=== PATIENT | female | born 1995 | race Two or more races ===

== ENCOUNTER 2016-12-06 23:16 | Emergency (ER) | payer SELFPAY ==
[2016-12-06 23:35] VITALS: BP 111/72
[2016-12-06] MEDS ORDERED: Cefdinir 250mg/5 ml* 100 ml ORAL.SUSP PO ONE (23:50)
[2016-12-06] MEDS ORDERED: Neomyc/Polym/HC 1% OTIC SUSP* **OTIC BOTH EARS ONE (23:52)
[2016-12-06] MEDS ORDERED: HYDROcodone/ACETAMIN 5-325 MG* 1 TAB PO ONE (23:52)
--- NOTE | 2016-12-06 23:57 | ED ---
Throat Pain/Nasal Congestion - HPI Summary HPI Summary: 21 female present with complaints of bilateral ear pain that has been ongoing for the past 2 days. Patient states she has also been having some hearing loss in both ears. Denies drainage or FB into the ears. Has had swimmers ear in the past. Has been taking ibuprofen for pain with little relief. 1000mg at 2100. Also tried using her ear drops from her last episode of swimmers ear years ago, 1 drop both ears today. Patient denies recent swimming. Admits to q- tip use. Took her temperature after taking some ibuprofen as she felt feverish and got 99F. Denies PMHx. States the ear pain has started to radiate into her jaw b/l. No sore throat or cough. - History of Current Complaint Chief Complaint: EDEarPain Time Seen by Provider: 12/06/16 23:35 Hx Obtained From: Patient Onset/Duration: Sudden Onset, Lasting Days - 2, Still Present, Worse Since Severity: Moderate Cough: None - Allergies/Home Medications Allergies/Adverse Reactions: Allergies Allergy/AdvReac Type Severity Reaction Status Date / Time Penicillins [PCN] Allergy Unknown Verified 12/31/13 16:33 Reaction Details PMH/Surg Hx/FS Hx/Imm Hx Endocrine/Hematology History: Denies: Hx Diabetes Cardiovascular History: Denies: Hx Congestive Heart Failure, Hx Hypertension Respiratory History: Denies: Hx Asthma History: Reports: Other Problems/Disorders - RIGHT OVARIAN CYST Denies: Hx Renal Disease - Surgical History Surgery Procedure, Year, and Place: none - Immunization History Date of Tetanus Vaccine: UP TO DATE Date of Influenza Vaccine: NONE Immunizations Up to Date: Yes Infectious Disease History: No Infectious Disease History: Denies: Traveled Outside the [place] in Last 30 Days - Family History Known Family History: Positive: None - Social History Alcohol Use: Occasionally Substance Use Type: Reports: None Smoking Status (MU): Never Smoked Tobacco Review of Systems Positive: Fever, Chills Eyes: Negative Positive: Ear Ache Cardiovascular: Negative Respiratory: Negative Gastrointestinal: Negative Skin: Negative Neurological: Negative All Other Systems Reviewed And Are Negative: Yes Physical Exam Triage Information Reviewed: Yes Vital Signs On Initial Exam: Initial Vitals Temp Pulse Resp BP Pulse Ox 98.2 F 91 16 111/72 100 12/06/16 23:33 12/06/16 23:33 12/06/16 23:33 12/06/16 23:33 12/06/16 23:33 Vital Signs Reviewed: Yes Appearance: Positive: Well-Appearing, Well-Nourished, Pain Distress - mild, holding ears Skin: Positive: Warm, Skin Color Reflects Adequate Perfusion, Dry Head/Face: Positive: Normal Head/Face Inspection Eyes: Positive: Normal, EOMI, KASSI, Conjunctiva Clear ENT: Positive: Hearing grossly normal, Pharynx normal, TM bulging - no perforations noted, TM dull, TM red - b/l., Other - EAC b/l with white/yellow drainage/exudate. Erythema and edema. No FB or signs of trauma. no mastoid tenderness. Negative: Pharyngeal erythema, Nasal congestion, Nasal drainage, Tonsillar swelling, Tonsillar exudate, Trismus, Muffled/hoarse voice Dental: Positive: Cervical Lymphadenopathy Neck: Positive: Supple, Nontender Respiratory/Lung Sounds: Positive: Clear to Auscultation, Breath Sounds Present. Negative: Rales, Rhonchi, Wheezes Cardiovascular: Positive: Normal, RRR, Pulses are Symmetrical in both Upper and Lower Extremities. Negative: Murmur, Rub Musculoskeletal: Positive: Normal, Strength/ROM Intact Neurological: Positive: Normal, Sensory/Motor Intact, Alert, Oriented to Person Place, Time Psychiatric: Positive: Affect/Mood Appropriate AVPU Assessment: Alert Diagnostics - Vital Signs Vital Signs Temp Pulse Resp BP Pulse Ox 12/06/16 23:33 98.2 F 91 16 111/72 100 - Laboratory Lab Statement: Any lab studies that have been ordered have been reviewed, and results considered in the medical decision making process. EENT Course/Dx - Course Course Of Treatment: Due to PE findings and HPI patient will be treated for both OM ad OE b/l. Given first dose of both drops and oral antibiotic while in ED. Take ibuprofen or tylenol for pain starting tomorrow. Aware of worsening signs and symtpoms and if symptoms worsen or do not improve to seek medical attention immediately. Follow up with PCP. Fluids and rest. No swimming or submerging water. Educated on proper use of q-tips. - Differential Diagnoses Differential Diagnoses: Otitis Externa, Otitis Media, Perforated TM, Tonsilitis , URI/Bronchitis - Diagnoses Provider Diagnoses: Otitis media of both ears, Otitis externa of both ears Discharge - Discharge Plan Condition: Stable Disposition: HOME Prescriptions: Cefdinir [Cefdinir 300 MG CAP] 300 mg PO BID #19 cap Neomyc/Polym/HC 1% OTIC SUSP* [Cortisporin Otic Susp 1%*] 4 drop BOTH EARS QID # 1 btl Patient Education Materials: Otitis Media (ED), Otitis Externa (ED) [facility] [[facility] - Additional Instructions: Use prescribed medications as directed until entire dose is finished, even if symptoms improve. Aleve or Tylenol for pain only as needed. Take with food. Do not submerge ears under water or go swimming until medication is completed and symptoms resolve. Do not stick anything (qtips) into the ears. Drink plenty of fluids, rest. Follow up with PCP. Return if symptoms worsen or do not improve.
== END 2016-12-07 00:13 | disposition home or self-care (01) ==
LOC: ED 23:16
DX: H66.93 Otitis media, unspecified, bilateral (principal); H60.93 Unspecified otitis externa, bilateral; H92.03 Otalgia, bilateral
CPT/HCPCS: 99282; A9270-GY